=== PATIENT | male | born 1950 | race Caucasian/White ===

== ENCOUNTER 2017-08-20 11:17 | Emergency (ER) | payer MEDICARE, OTHER ==
[2017-08-20 11:34] VITALS: BP 139/79
--- NOTE | 2017-08-20 12:39 | ED Physician Documentation ---
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 He is right-handed. Tetanus is up-to-date. Nothing makes it better or worse. Denies any numbness Review of Systems Neurologic: denies: Focal weakness, Numbness PD PAST MEDICAL HISTORY - Past Medical History Past Medical History: Yes GI: GERD - Past Surgical History Past Surgical History: Yes Ortho: Hip replacement, Spine surgery - Present Medications Home Medications: Ambulatory Orders Medication Instructions Recorded Confirmed raNITIdine [Zantac] 150 mg PO DAILY PRN 12/08/15 06/06/17 Multivitamin [Multivitamins] 1 each PO DAILY 06/12/17 06/12/17 Cephalexin [Keflex] 500 mg PO Q6H #28 capsule 08/20/17 - Allergies Allergies/Adverse Reactions: Allergies Allergy/AdvReac Type Severity Reaction Status Date / Time No Known Drug Allergies Allergy Verified 02/05/15 09:03 - Living Situation Living Situation: reports: With family Living Arrangement: reports: At home - Social History Does the pt smoke?: No Smoking Status: Never smoker Does the pt drink ETOH?: Yes Does the pt have substance abuse?: No - Immunizations Immunizations are current?: Yes - POLST Patient has POLST: No PD ED PE NORMAL - Vitals Vital signs reviewed: Yes - General General: Alert and oriented X 3 - HEENT HEENT: Moist mucous membranes - Neck Neck: Supple, no meningeal sign - Derm Derm: Warm and dry - Extremities Extremities: Other (L thumb - laceration to the dorsal aspect, just proximal to the MCP joint. NVI. brisk cap refill. visible tendon laceration. ) - Neuro Neuro: Alert and oriented X 3 Results - Vitals Vitals: Vital Signs - 24 hr 08/20/17 11:27 Temperature 36.4 C L Heart Rate 61 Respiratory 16 Rate Blood Pressure 139/79 H O2 Saturation 96 Oxygen O2 Source Room air - Rads (name of study) L thumb xray Radiology: Prelim report reviewed, EMP read contemporaneously, See rad report ( No fracture or subluxation. ) PD MEDICAL DECISION MAKING - ED course Complexity details: reviewed results, re-evaluated patient, considered differential, d/w patient, d/w healthcare consultant ED course: Patient is a 66-year-old male who presents to the emergency department with a laceration to the volar aspect of the left thumb. Appears to have lacerated his extensor pollicus brevis. Discussed the case with orthopedics, Dr. Tinajero who came and evaluated the patient in the emergency department. He attempted to repair the tendon and closed laceration. The patient was then placed in a thumb spica splint and will follow up with orthopedics. Tdap was given and will place on antibiotics for home. He declines pain medication here or for home. Warnings of infection and instructions on wound care given at bedside. Also counseled on how to minimize scarring. Patient counseled regarding signs and symptoms for which I believe and urgent re-evaluation would be necessary. Patient with good understanding of and agreement to plan and is comfortable going home at this time This document was made in part using voice recognition software. While efforts are made to proofread this document, sound alike and grammatical errors may occur. - Sepsis Event Vital Signs: Vital Signs - 24 hr 08/20/17 11:27 Temperature 36.4 C L Heart Rate 61 Respiratory 16 Rate Blood Pressure 139/79 H O2 Saturation 96 Oxygen O2 Source Room air Departure - Departure Disposition: 01 Home, Self Care Clinical Impression: Laceration of thumb with tendon involvement Qualifiers: Encounter type: initial encounter Laterality: left Qualified Code(s): S61.012A - Laceration without foreign body of left thumb without damage to nail, initial encounter Condition: Good Instructions: ED Laceration Hand, ED Laceration Tendon Follow-Up: [facility] [Provider Group] - Within 1 week Prescriptions: Cephalexin [Keflex] 500 mg PO Q6H #28 capsule Comments: Take all antibiotics until gone. Return if you worsen. You were given a tetanus shot today. Wear the splint until released by orthopedics. You were seen by Dr. Tinajero today. Return especially for redness, swelling or drainage from the wound Discharge Date/Time: 08/20/17 15:12
[2017-08-20] MEDS ORDERED: BUPIVACAINE 0.25% PF 30 ML VIAL SUBQ STA (13:31)
[2017-08-20] MEDS ORDERED: LIDOCAINE 2% 10 ML MDV SUBQ STA (13:31)
[2017-08-20] MEDS ORDERED: TETANUS/DIPHTHERIA/PERTUSSIS 0.5 ML SYRINGE IM ONE (13:31)
--- NOTE | 2017-08-20 13:36 | XRAY Report ---
Procedure Date: 08/20/2017 Accession Number: [id number] / [id number] Procedure: XR - Finger(s) LT CPT Code: FULL RESULT: EXAM: LEFT FIRST DIGIT RADIOGRAPHY EXAM DATE: 08/20/2017 01:17 PM. CLINICAL HISTORY: L thumb laceration, MCP joint. COMPARISON: None. TECHNIQUE: 3 views. FINDINGS: Bones: Normal. No fracture or bone lesion. Joints: There is mild spurring of the interphalangeal joint. Soft Tissues: No soft tissue foreign body. IMPRESSION: 1. No fracture or subluxation. RADIA
--- NOTE | 2017-08-20 15:02 | PROVIDER PROGRESS NOTE ---
Subjective - Prog Note Date Prog Note Date: 08/20/17 Prog Note Time: 15:00 - Subjective Subjective: Patient [facility] a grinder outside diameter injury to dorsal base of his left non-dominant thumb this AM, sustaining an extensor tendon laceration to EPL and EPBr. No prior injury to thumb. No distal numbness. Objective - Vital Signs/Intake & Output Vital Signs: Vital Signs x48h Temp Pulse Resp BP Pulse Ox 08/20/17 11:27 36.4 C L 61 16 139/79 H 96 - Diagnostic Imaging Diagnostic Imaging Comments: XR show no Fx or dislocation Assessment/Plan - Problem List (1) Laceration of thumb with tendon involvement Impression: Satis condition PLAN: Under local block with 1/2% marcaine + 1% lidocaine without epi, 12 ml used to provide local anesthesia. Wound irrigated with 500 ml of normal saline. Proximal extension of laceration performed; probing did not locate proximal end of EPBr tendon. Repaired the 60% laceration of EPL with horizonal stitch of 4-0 vicryl. Closed skin laceration and extension with 4-0 nylon. Thumb MCP/ IP joint splinted in extension. ANtibiotic and analgesics given. RTC in 5 days for wound check. Qualifiers: Encounter type: initial encounter Laterality: left Qualified Code(s): S61.012A - Laceration without foreign body of left thumb without damage to nail , initial encounter; S66.922A - Laceration of unspecified muscle, fascia and tendon at wrist and hand level, left hand, initial encounter; S66.922A - Laceration of unspecified muscle, fascia and tendon at wrist and hand level, left hand, initial encounter
[2017-08-20] MEDS ORDERED: BACITRACIN OINT TOP ONE (15:03)
--- NOTE | 2017-08-20 15:57 | CONSULTATION NOTE ---
DATE OF SERVICE: 08/20/2017 Physician: Lázaro Tinajero MD REFERRING PHYSICIAN: Dr. 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 He sustained a dorsal thumb laceration to the base of his digit with his left nondominant upper extremity this morning. He is still able to extend the IP and MCP joint of his thumb, albeit with some mild pain. There is no distal weakness or numbness noted. No other injuries noted. No prior thumb injuries. PHYSICAL EXAMINATION: The left thumb shows an oblique skin laceration measuring about 3 cm in length. We can see about a 60% laceration of the extensor pollicis longus tendon. The distal end of the lacerated extensor pollicis brevis tendon was visible. There was no gross foreign bodies visible. The patient is able to actively extend the IP and MCP joint of his thumb with minimal pain. Neurovascular appears to be intact on the tip of his thumb. X-RAYS: X-rays that were taken of the digit show no apparent fractures, dislocations, or retained foreign bodies. ASSESSMENT: Laceration to the left nondominant thumb extensor pollicis longus and extensor pollicis brevis tendons. PLAN: After local anesthesia was performed using 12 mL of a 0.5% Marcaine plus 1% lidocaine without epinephrine mixture, we obtained local anesthesia at the wound site. We probed the wound and found no foreign bodies present. The findings were as noted above. We then did a proximal extension of the laceration in a zigzag fashion. We were unable, however, to retrieve or locate the proximal end of the extensor pollicis brevis tendon. Unable to locate this, we elected just to repair the long extensor. This was done with a horizontal mattress stitch of 4-0 Vicryl suture. We then proceeded to finish closing the wound using horizontal mattress stitches of 4-0 nylon. Wounds were dressed, the thumb splinted in extension at the MCP and PIP joint, and patient ready for discharge. Patient will be given a 5-day course of antibiotics and some oral analgesics. He will follow up in the orthopedic clinic in approximately 5 days' time for a wound check and re-splinting. TD: 08/20/2017 15:25
== END 2017-08-20 15:12 | disposition home or self-care (01) ==
LOC: ED 11:17
DX: S61.012A Laceration without foreign body of left thumb without damage to nail, initial encounter (principal); S66.922A Laceration of unspecified muscle, fascia and tendon at wrist and hand level, left hand, initial encounter; W29.8XXA Contact with other powered hand tools and household machinery, initial encounter; Y92.009 Unspecified place in unspecified non-institutional (private) residence as the place of occurrence of the external cause; K21.9 Gastro-esophageal reflux disease without esophagitis; Z23 Encounter for immunization
CPT/HCPCS: 26418; 73140; 90471; 90715; 99283; A9270; 29125

== ENCOUNTER 2020-04-02 10:18 | Day surgery (SDC) | payer MEDICARE, OTHER ==
[2020-04-02] MEDS ORDERED: LACTATED RINGERS 1,000 ML IV ONE (10:55)
[2020-04-02] MEDS ORDERED: fentaNYL 250 MCG/5 ML VIAL ONE (12:18)
[2020-04-02] MEDS ORDERED: MIDAZOLAM 2 MG/2 ML VIAL ONE ×3 (12:18→12:36)
[2020-04-02] MEDS ORDERED: LACTATED RINGERS 50 ML IV ONE (13:07)
[2020-04-02 14:13] VITALS: BP 138/93
== END 2020-04-02 10:19 | disposition home or self-care (01) ==
LOC: SDS 10:18
PROVIDERS: ATTEND Surgery
PROC: 0DBL8ZZ Excision of Transverse Colon, Via Natural or Artificial Opening Endoscopic (ICD-10-PCS; principal; 2020-04-02 11:30)
DX: Z12.11 Encounter for screening for malignant neoplasm of colon (principal); D12.3 Benign neoplasm of transverse colon; K63.5 Polyp of colon; Z85.828 Personal history of other malignant neoplasm of skin; Z85.810 Personal history of malignant neoplasm of tongue
CPT/HCPCS: 45380; J3010; J7120

== ENCOUNTER 2020-11-24 06:27 | Day surgery (SDC) | payer MEDICARE, OTHER ==
[2020-11-24] MEDS ORDERED: CEFAZOLIN SODIUM IN 0.9 % NACL 2 GM/100 ML BAG IV ONE (06:33)
[2020-11-24] MEDS ORDERED: LACTATED RINGERS 1,000 ML IV ONE ×2 (06:37→08:55)
[2020-11-24] MEDS ORDERED: MIDAZOLAM 2 MG/2 ML VIAL ONE (07:21)
[2020-11-24] MEDS ORDERED: fentaNYL 100 MCG/2 ML VIAL ONE (07:21)
[2020-11-24] MEDS ORDERED: PROPOFOL 500 MG/50 ML 500 MG/50 ML VIAL ONE (07:23)
[2020-11-24] MEDS ORDERED: HYDROmorphone 0.5 MG/0.5 ML SYRINGE IVP PRN (07:30)
[2020-11-24] MEDS ORDERED: MORPHINE 2 MG/ML CARPUJECT IVP PRN (07:30)
[2020-11-24] MEDS ORDERED: ePHEDrine 50 MG/ML VIAL IVP PRN (07:30)
[2020-11-24] MEDS ORDERED: ATROPINE ABBOJECT 1 MG/10 ML SYRINGE IVP PRN (07:30)
[2020-11-24] MEDS ORDERED: fentaNYL 100 MCG/2 ML VIAL IVP PRN (07:30)
[2020-11-24] MEDS ORDERED: ONDANSETRON 4 MG/2 ML VIAL IVP PRN (07:30)
[2020-11-24] MEDS ORDERED: METOCLOPRAMIDE 10 MG/2 ML VIAL IVP PRN (07:30)
[2020-11-24] MEDS ORDERED: NALOXONE 0.4 MG/ML VIAL IVP PRN (07:30)
--- NOTE | 2020-11-24 07:30 | ANESTHESIA ---
Pre-Anesthesia VS, & Labs - Diagnosis R inguinal hernia - Procedure R inguinal hernia repair Vital Signs: Temp Pulse Resp BP Pulse Ox 36.3 C L 56 L 17 127/88 H 99 11/24/20 06:39 11/24/20 06:39 11/24/20 06:39 11/24/20 06:39 11/24/20 06:39 Height: 6 ft Weight (kg): 74.3 kg Body Mass Index: 22.1 BMI Classification: Healthy weight - NPO >8 hours Home Medications and Allergies Doxazosin [Cardura] 1 tab ORAL DAILY 04/02/20 Pantoprazole [Protonix] 40 mg ORAL DAILY 04/02/20 Allergies/Adverse Reactions: Allergies Allergy/AdvReac Type Severity Reaction Status Date / Time No Known Drug Allergies Allergy Verified 08/18/20 16:36 Anes History & Medical History - Anesthetic History Anesthesia Complications: reports: Other-see comment (pt has had radiation on neck since previous anesthesia, which causes difficulty swallowing and possible pressure on trachea) Family history of Anesthesia Complications: Denies Family history of Malignant Hyperthermia: Denies - Medical History Cardiovascular: reports: None Pulmonary: reports: None Gastrointestinal: reports: GERD Urinary: reports: Nocturia Musculoskeletal: reports: Osteoarthritis Endocrine/Autoimmune: reports: None Skin: reports: Other Smoking Status: Never smoker - Surgical History General: reports: Colonoscopy Eyes Ears Nose Throat (EENT): reports: Tonsil/Adenoidectomy Orthopedic: reports: Hip replacement, Other Exam General: Alert, Oriented x3, Cooperative Dental: WNL Mouth Openin Fingerbreadth Neck Mobility: Reduced Mallampati classification: II Thyromental Distance: 4-6 cm Respiratory: Lungs clear Cardiovascular: Regular rate Plan Anesthesia Type: Total IV Consent for Procedure(s) Verified and Reviewed: Yes Code Status: Attempt Resuscitation ASA classification: 3-Severe systemic disease Is this case an emergency?: No
[2020-11-24] MEDS ORDERED: PROPOFOL 200 MG/20 ML VIAL IVP ONE (07:35)
[2020-11-24] MEDS ORDERED: BUPIVACAINE 0.25% PF 30 ML VIAL SUBQ ONE ×2 (07:58)
[2020-11-24] MEDS ORDERED: LIDOCAINE-MPF 1% 30 ML VIAL SUBQ ONE ×2 (07:58)
[2020-11-24] MEDS ORDERED: LACTATED RINGERS 1,000 ML IV SCH (08:00)
[2020-11-24] MEDS ORDERED: HYDROcod/ACETAM 5/325 MG TABLET PO PRN (08:59)
--- NOTE | 2020-11-24 09:05 | OPERATIVE REPORT ---
Operative Report - General Procedure Date: 11/24/20 Planned Procedure: open right inguinal hernia repair with mesh Pre-Op Diagnosis: right inguinal hernia Procedure Performed: open right inguinal hernia repair with mesh Post Op Diagnosis: indirect inguinal hernia - Procedure Note Primary Surgeon: mercy ha md Anesthesia Technique: Local, MAC Pathology: none sent Estimated Blood Loss (mL): 1 Drain/Tube Type: Other (none) Indications: painful hernia bulge Findings: as above. ilioinguinal nerve ran in a medial direction. was mobilized to avoid tension - Other Other Information/Narrative: Patient was properly identified brought to the operating room and placed in supine position. Sequential compression devices were placed. Monitored anesthesia care was induced. He was prepped and draped in a sterile fashion and given preoperative antibiotics. Local anesthetic was given throughout the procedure. A 5 cm incision was made in the direction of Lupe's lines just cephalad of the pubic tubercle. Dissection proceeded with cutting current cautery. The superficial epigastric vein was identified clamped divided and tied with 3-0 Vicryl. Dissection proceeded down to the aponeurosis. The aponeurosis was opened in the direction of its fibers and extended to the external ring. Cord structures were mobilized and brought up. The nerves were carefully protected and preserved. Cord structures were mobilized and brought up. An indirect inguinal hernia was present. The hernia sac was mobilized off the cord structures and suture ligated with 2 O silk and further reduced. Preperitoneal fat was removed. The base was tied with 2 O vicryl. Polypropylene mesh was cut to size and with tails. The mesh was secured with multiple interrupted 0 Ethibond sutures. She was placed along the pubic tubercle, Darnell's ligament area and along the shelving border of Poupart's ligament. Sutures were placed medially along the abdominal wall musculature and internal oblique. The medial tail of the mesh was secured to the shelving border of Poupart's ligament with 3 interrupted 0 ethibond sutures recreating the internal ring of appropriate size. An additional suture was placed in the crotch of the mesh recreating an internal ring of appropriate size. Aponeurosis was closed with a running 2-0 Vicryl suture. The opposite was closed with interrupted 3-0 Vicryl suture. Buried interrupted subdermal 3-0 Vicryl sutures were then placed. And was closed with a running 4-0 Monocryl subcuticular suture. Dressing was applied. Patient was awakened and brought to recovery in good condition.
[2020-11-24 09:33] VITALS: BP 146/96
--- NOTE | 2020-11-24 09:39 | ANESTHESIA POST OP EVALUATION ---
Anesthesia Post Eval - Post Anesthesia Eval Vitals: Last Vital Signs Temp 36.2 C L 11/24/20 09:13 Pulse 52 L 11/24/20 09:31 Resp 12 11/24/20 09:31 BP 146/96 H 11/24/20 09:31 Pulse Ox 99 11/24/20 09:31 CV Function Including HR & BP: Stable Pain Control: Satisfactory Nausea & Vomiting: Negative Mental Status: Baseline Respiratory Status: Airway Patent Hydration Status: Satisfactory Anesthesia Complications: None
== END 2020-11-24 06:28 | disposition home or self-care (01) ==
LOC: SDS 06:27
PROVIDERS: ATTEND Surgery
DX: K40.90 Unilateral inguinal hernia, without obstruction or gangrene, not specified as recurrent (principal); K21.9 Gastro-esophageal reflux disease without esophagitis; R13.19 Other dysphagia; Z92.3 Personal history of irradiation
CPT/HCPCS: 49505; C1781; J0690; J7120

== ENCOUNTER 2021-08-10 08:00 | Outpatient (CLI) | payer MEDICARE, OTHER | END 2021-08-10 08:01 | disposition home or self-care (01) | LOC: DI 08:00 | PROVIDERS: ATTEND Internal Medicine | DX: I51.7 Cardiomegaly (principal); T45.1X5S Adverse effect of antineoplastic and immunosuppressive drugs, sequela; Z85.89 Personal history of malignant neoplasm of other organs and systems; Z92.3 Personal history of irradiation; Z92.21 Personal history of antineoplastic chemotherapy; R06.00 Dyspnea, unspecified | CPT/HCPCS: 93306 ==